=== PATIENT | male | born 2000 | race Caucasian/White ===

== ENCOUNTER 2022-01-19 14:41 | Outpatient (CLI) | payer BC ==
[~2022-01-19 14:41] MED LIST: Magnevist 469MG/ML 20 ML VIAL ONE
== END 2022-01-19 14:42 | disposition home or self-care (01) ==
LOC: CSHMRI 14:41
PROVIDERS: ATTEND Student in an Organized Health Care Education/Training Program
DX: H91.20 Sudden idiopathic hearing loss, unspecified ear (principal)
CPT/HCPCS: 70553